=== PATIENT | female | born 1935 | race Caucasian/White ===

== ENCOUNTER 2017-01-19 06:34 | Emergency (ER) | payer MEDICARE, BC ==
[~2017-01-19] VITALS: Ht 167.6 cm; Wt 55.3 kg
[~2017-01-19 06:34] MED LIST: ALPR0.5T PO; APIX5TAB OR; SOTA80TA20 PO; ZOLP10TA PO; [UNRECOGNIZED DRUG - CODE] PO
[2017-01-19 07:43] VITALS: BP 164/70
[2017-01-19] MEDS ORDERED: HYDROcodone-ACET 10/325MG TAB PO ONE (08:00)
== END 2017-01-19 09:32 | disposition home or self-care (01) ==
LOC: ER 06:34 → EDBD 06:34 → ER 09:32
DX: S40.011A Contusion of right shoulder, initial encounter (principal); S20.211A Contusion of right front wall of thorax, initial encounter; M19.90 Unspecified osteoarthritis, unspecified site; Z88.2 Allergy status to sulfonamides; W01.0XXA Fall on same level from slipping, tripping and stumbling without subsequent striking against object, initial encounter; Y93.89 Activity, other specified; Y99.8 Other external cause status; Y92.002 Bathroom of unspecified non-institutional (private) residence as the place of occurrence of the external cause
CPT/HCPCS: 71101; 73030; 73502; 73630

== ENCOUNTER 2018-06-28 08:51 | Emergency (ER) | payer MEDICARE, OTHER ==
[~2018-06-28] VITALS: Ht 162.6 cm; Wt 50.3 kg
[2018-06-28 10:10] LABS: Basophils # (auto) 0.1 uL; Basophils % (auto) 1.1 % (0.0-2.0); Eosinophils # (auto) 0.2 uL; Eosinophils % (auto) 3.8 % (0.0-7.0); Hematocrit 33.2 % (36.0-46.0); Hemoglobin 10.9 g/dL (12.2-16.2); Lymphocytes # (auto) 0.9 uL; Lymphocytes % (auto) 17.5 % (10.0-50.0); Mean Corpuscular Hemoglobin 29.7 pg (28.0-32.0); Mean Corpuscular Volume 90.1 fL (80.0-100.0); Monocytes # (auto) 0.3 uL; Neutrophils # (auto) 3.4 uL; Neutrophils % (auto) 70.6 % (37.0-80.0); Platelet Count (auto) 280 10^3/uL (140-450); Red Blood Cells 3.68 10^6/uL (4.0-5.20); Red Cell Distribution Width 14.8 % (11.8-14.3); White Blood Cell 4.9 10^3/uL (4.4-10.8)
[2018-06-28 10:14] LABS: Urine WBC None Seen /hpf (0 - 5)
[2018-06-28 10:29] LABS: Albumin 3.6 g/dL (3.4-5.0); Anion Gap 11 (5-15); Blood Urea Nitrogen 16 mg/dL (7-18); Carbon Dioxide 24 mmol/L (21-32); Chloride 102 mmol/L (98-107); Glucose 114 mg/dL (74-106); Potassium 3.8 mmol/L (3.5-5.1); Sodium 137 mmol/L (136-145)
[2018-06-28 10:35] LABS: Alanine Aminotransferase 20 U/L (13-56); Alkaline Phosphatase 156 U/L (45-117); Aspartate Aminotransferase 40 U/L (15-37); BUN/Creatinine Ratio 22.2; Bilirubin, Total 0.4 mg/dL (0.2-1.0); GFR African American 99 mL/min; GFR Non-African American 82 mL/min; Total Protein 6.7 g/dL (6.4-8.2)
[2018-06-28 10:53] LABS: Urine Bacteria NONE SEEN /hpf (None Seen); Urine Blood TRACE /uL (Negative); Urine Specific Gravity 1.006 (1.001-1.035)
[2018-06-28 12:57] VITALS: BP 146/60
== END 2018-06-28 13:05 | disposition home or self-care (01) ==
LOC: EDBD 08:51 → ER 08:51
DX: I11.0 Hypertensive heart disease with heart failure (principal); I50.9 Heart failure, unspecified; F41.8 Other specified anxiety disorders; I48.91 Unspecified atrial fibrillation; Z79.899 Other long term (current) drug therapy; Z88.2 Allergy status to sulfonamides; Z88.8 Allergy status to other drugs, medicaments and biological substances
CPT/HCPCS: 36415; 80053; 81001; 84484; 85025; 93005; 94761

== ENCOUNTER 2018-11-14 16:27 | Emergency (ER) | payer MEDICARE, OTHER ==
[~2018-11-14] VITALS: Ht 160 cm; Wt 47.6 kg
[2018-11-14] MEDS ORDERED: ONDANSETRON HCL 4 MG/2 ML VIAL IV ONE (17:30)
[2018-11-14] MEDS ORDERED: MORPHINE SULF INJ 2 MG/ML SYRINGE 1ML IV ONE (17:30)
[2018-11-14] MEDS ORDERED: ONDANSETRON HCL 4 MG/2 ML VIAL IM ONE (17:45)
[2018-11-14] MEDS ORDERED: MORPHINE SULF INJ 2 MG/ML SYRINGE 1ML IM ONE (17:45)
[2018-11-14 18:08] LABS: Albumin 3.4 g/dL (3.4-5.0); Calcium 8.2 mg/dL (8.5-10.1); Potassium 3.6 mmol/L (3.5-5.1)
[2018-11-14 18:10] LABS: Basophils # (auto) 0.1 uL; Eosinophils # (auto) 0.1 uL; Lymphocytes # (auto) 1.3 uL; Monocytes # (auto) 0.6 uL; Monocytes % (auto) 7.9 % (0.0-12.0); Neutrophils # (auto) 5.3 uL; White Blood Cell 7.4 10^3/uL (4.4-10.8)
[2018-11-14 18:11] LABS: Basophils % (auto) 0.8 % (0.0-2.0); Eosinophils % (auto) 1.8 % (0.0-7.0); Hematocrit 32.6 % (36.0-46.0); Hemoglobin 10.4 g/dL (12.2-16.2); Mean Corpuscular Hemoglobin 27.6 pg (28.0-32.0); Mean Corpuscular Volume 86.2 fL (80.0-100.0); Neutrophils % (auto) 71.5 % (37.0-80.0); Nucleated Red Blood Cells % 0.1 %; Platelet Count (auto) 340 10^3/uL (140-450); Red Blood Cells 3.78 10^6/uL (4.0-5.20); Red Cell Distribution Width 15.8 % (11.8-14.3)
[2018-11-14 18:12] LABS: BUN/Creatinine Ratio 16.9; Bilirubin, Total 0.2 mg/dL (0.2-1.0); Total Protein 6.2 g/dL (6.4-8.2)
[2018-11-14 18:40] LABS: Urine Bacteria FEW /hpf (None Seen); Urine Blood Negative /uL (Negative); Urine Specific Gravity 1.006 (1.001-1.035); Urine WBC <1 /hpf (0 - 5)
[2018-11-14 21:12] VITALS: BP 171/71
[2018-11-14] MEDS ORDERED: HYDROcodone-ACET 5/325MG TAB PO ONE (22:45)
== END 2018-11-14 23:27 | disposition home or self-care (01) ==
LOC: EDBD 16:27 → ER 16:29
DX: S80.11XA Contusion of right lower leg, initial encounter (principal); D50.9 Iron deficiency anemia, unspecified; M19.90 Unspecified osteoarthritis, unspecified site; I11.0 Hypertensive heart disease with heart failure; I50.9 Heart failure, unspecified; Z90.49 Acquired absence of other specified parts of digestive tract; Z90.710 Acquired absence of both cervix and uterus; Z88.2 Allergy status to sulfonamides; W19.XXXA Unspecified fall, initial encounter; Y93.89 Activity, other specified; Y99.8 Other external cause status; Y92.89 Other specified places as the place of occurrence of the external cause
CPT/HCPCS: 36415; 71045; 73590; 80053; 81001; 85025; 93005; 96372; J2405

== ENCOUNTER 2020-01-16 10:31 | Inpatient (IN) | payer MEDICARE ==
[~2020-01-16] VITALS: Ht 165.1 cm; Wt 60.0 kg
[2020-01-16 11:40] LABS: Eosinophils # (auto) 0 10 ^3/uL (0-0.8)
[2020-01-16 11:43] LABS: Basophils # (auto) 0.1 10 ^3/uL (0-0.2); Basophils % (auto) 0.4 % (0.0-2.0); Hematocrit 38.2 % (36.0-46.0); Hemoglobin 11.8 g/dL (12.2-16.2); Lymphocytes # (auto) 0.6 10 ^3/uL (0.4-5.4); Lymphocytes % (auto) 2.9 % (10.0-50.0); Mean Corpuscular Hemoglobin 23.8 pg (28.0-32.0); Mean Corpuscular Hgb Conc. 30.8 g/dL (32.0-36.0); Mean Corpuscular Volume 77.3 fL (80.0-100.0); Monocytes # (auto) 1.3 10 ^3/uL (0-1.3); Monocytes % (auto) 6.3 % (0.0-12.0); Neutrophils # (auto) 18.6 10 ^3/uL (1.6-8.6); Neutrophils % (auto) 90.4 % (37.0-80.0); Platelet Count (auto) 433 10^3/uL (140-450); Red Blood Cells 4.94 10^6/uL (4.0-5.20); Red Cell Distribution Width 16.8 % (11.8-14.3); White Blood Cell 20.6 10^3/uL (4.4-10.8)
[2020-01-16 12:01] LABS: Potassium 3.6 mmol/L (3.5-5.1)
[2020-01-16] MEDS: MORPHINE SULF INJ 2 MG/ML SYRINGE 1ML IV PRN ×4 (12:08→21:35)
[2020-01-16 12:10] LABS: Albumin 3.5 g/dL (3.4-5.0); BUN/Creatinine Ratio 23.5; Bilirubin, Total 0.4 mg/dL (0.2-1.0); Total Protein 7.7 g/dL (6.4-8.2)
[2020-01-16 13:25] LABS: Urine Bacteria NONE SEEN /hpf (None Seen); Urine Blood 2+ /uL (Negative); Urine Hyaline Cast FEW /lpf (0 - 2); Urine Mucus FEW (None Seen); Urine Specific Gravity 1.016 (1.001-1.035); Urine WBC 1 /hpf (0 - 5)
[2020-01-16] MEDS ORDERED: NITROGLYCERIN 0.4 MG SL TAB SL PRN (14:00)
[2020-01-16] MEDS: SODIUM CHLORIDE 0.9% 1,000 ML IV SCH (14:29)
[2020-01-16] MEDS ORDERED: LABETALOL HCL 5 MG/ML 4ML SYRINGE IV PRN (15:00)
[2020-01-16 17:00] VITALS: BP 153/82
--- NOTE | 2020-01-16 17:30 | NUR ---
Telemetry admit from ER MANUELAAIDA PRADO admitted to Telemetry unit, no report received. Patient oriented to JEREMY VILA RN primary RN, unit, room, bed, and unit policies regarding patient care. Patient now on continuous telemetry monitoring, tele box # 88 and telemetry reading on arrival to unit is sinus tachycardic 110. Patient is on room air, respirations even and unlabored. Patient complains of pain to left hip 8/10. Patient repositioned for comfort. Reviewed plan of care with patient, patient verbalized understanding. Bed in low and locked position, call light within reach. Will continue to monitor Q1 hour and PRN. Bed alarm of for safety.
--- NOTE | 2020-01-16 17:45 | NUR ---
computed tomography technologist at bedside
[2020-01-16] MEDS: PIPERACILLIN-TAZOB 3.375GM 100 ML IV SCH (18:01)
[2020-01-16] MEDS: SUCRALFATE 1 GM/10 ML ORAL SUSP GT SCH (18:01)
--- NOTE | 2020-01-16 18:41 | NUR ---
PATIENT STATES SHE HAD A PNEUMONIA VACCINE 2 YEARS AGO AND DOES NOT WANT A FLU SHOT. PATIENT EDUCATED AND STILL REFUSES.
--- NOTE | 2020-01-16 18:55 | NUR ---
Wound photos taken
[2020-01-16 19:19] LABS: INR 1.03 (0.9-1.15)
--- NOTE | 2020-01-16 19:30 | NUR ---
Opening Shift Note Assumed care of patient, awake and alert. No S/S of distress/SOB. Pain management options discussed with patient. Instructed on POC and to call for assist PRN, will continue to monitor for changes Q1hr and PRN.
--- NOTE | 2020-01-16 19:36 | NUR ---
Closing Note Report given to overnight caregiver RN. No signs or symptoms of distress noted at this time. Bed alarm on for safety.
[2020-01-16 20:00] VITALS: BP 147/75
[2020-01-16] MEDS: METOPROLOL TARTRATE 25 MG TAB PO SCH (21:35)
--- NOTE | 2020-01-16 21:55 | NUR ---
Spoke with Dr. Gross concerning the patient's wishes to not have the procedure tomorrow. Dr. Gross said that he will be here in the morning to speak with the patient.
[2020-01-17] MEDS: PIPERACILLIN-TAZOB 3.375GM 100 ML IV SCH ×3 (00:19→11:50)
[2020-01-17] MEDS: SODIUM CHLORIDE 0.9% 1,000 ML IV SCH ×3 (00:19→20:00)
[2020-01-17] MEDS: ONDANSETRON HCL 4 MG/2 ML VIAL IV PRN (00:20)
[2020-01-17] MEDS: TEMAZEPAM 15 MG CAP PO PRN (03:37)
[2020-01-17] MEDS: SUCRALFATE 1 GM/10 ML ORAL SUSP GT SCH ×3 (06:28→17:57)
[2020-01-17 06:33] LABS: Basophils # (auto) 0 10 ^3/uL (0-0.2); Eosinophils # (auto) 0 10 ^3/uL (0-0.8); Lymphocytes % (auto) 7.3 % (10.0-50.0); Monocytes # (auto) 1.1 10 ^3/uL (0-1.3); Monocytes % (auto) 8.1 % (0.0-12.0); Neutrophils # (auto) 11.5 10 ^3/uL (1.6-8.6); Neutrophils % (auto) 84.3 % (37.0-80.0); White Blood Cell 13.6 10^3/uL (4.4-10.8)
[2020-01-17 06:36] LABS: Basophils % (auto) 0.1 % (0.0-2.0); Eosinophils % (auto) 0.2 % (0.0-7.0); Hematocrit 32.7 % (36.0-46.0); Mean Corpuscular Hemoglobin 23.8 pg (28.0-32.0); Mean Corpuscular Hgb Conc. 30.6 g/dL (32.0-36.0); Mean Corpuscular Volume 77.8 fL (80.0-100.0); Platelet Count (auto) 319 10^3/uL (140-450); Red Cell Distribution Width 16.8 % (11.8-14.3)
[2020-01-17 06:44] LABS: Potassium 3.9 mmol/L (3.5-5.1)
[2020-01-17 07:21] LABS: Albumin 3.1 g/dL (3.4-5.0); BUN/Creatinine Ratio 26.9; Bilirubin, Total 0.4 mg/dL (0.2-1.0); Calcium 8.6 mg/dL (8.5-10.1); Total Protein 6.7 g/dL (6.4-8.2)
--- NOTE | 2020-01-17 07:45 | NUR ---
Opening Shift Note Assumed care of patient, awake and alert x3. No S/S of distress/SOB. Patient reports abdominal pain of 6/10, will medicate per MD orders. Instructed on POC and to call for assistance PRN. Bed locked in lowest position, side rails up x2, call light within reach, bed alarm on, safety precautions in place. Will continue to monitor for changes Q1hr and PRN.
[2020-01-17] MEDS: HYDROcodone-ACET 5/325MG TAB PO PRN (08:03)
[2020-01-17 09:00] VITALS: BP 157/68
[2020-01-17] MEDS ORDERED: MUPIROCIN 2% OINT 15gm or 22gm EACHNOSTRI SCH (10:00)
[2020-01-17 10:24] LABS: % Iron Saturation 11.7 % (15-50)
[2020-01-17] MEDS: PANTOPRAZOLE 40 MG/10 ML VIAL INJ IV SCH (10:31)
[2020-01-17] MEDS: METOPROLOL TARTRATE 25 MG TAB PO SCH ×2 (10:31→22:03)
[2020-01-17] MEDS: MORPHINE SULF INJ 2 MG/ML SYRINGE 1ML IV PRN ×2 (10:31→21:06)
[2020-01-17] MEDS ORDERED: ALPRAZolam 0.5 MG TAB PO PRN (11:45)
[2020-01-17] MEDS ORDERED: POLYETHYLENE GLYCOL 17 GM PWDR PO PRN (11:45)
[2020-01-17] MEDS ORDERED: IRON SUCROSE COMPLEX 200 MG in SODIUM CHL 0.9% 100 ML IV SCH (12:00)
[2020-01-17] MEDS ORDERED: TETRACAINE 1% INJ 2 ML VIAL IJ ONE (12:45)
[2020-01-17] MEDS ORDERED: BUPIVACAINE 0.25% INJ 50ML VIAL ONE (12:45)
[2020-01-17] MEDS ORDERED: KETOROLAC TROMETH 30 MG/ML 1ML VIAL ONE (12:47)
[2020-01-17] MEDS ORDERED: MORPHINE SULF(PF) 0.5MG/ML 10ML VIAL ONE ×2 (12:47→13:23)
[2020-01-17] MEDS ORDERED: TRANEXAMIC ACID 10 ML ONE ×2 (12:50→12:58)
[2020-01-17] MEDS ORDERED: VANCOMYCIN HCL 1000 MG VL ONE ×2 (12:54→13:45)
[2020-01-17 13:00] VITALS: BP 139/65
[2020-01-17] MEDS: SODIUM FERR GLUC 62.5MG/5ML 125 MG in SODIUM CHL 0.9% 100 ML IV SCH (13:00)
[2020-01-17] MEDS ORDERED: fentaNYL CITRATE 100 MCG/2 ML VL ONE (13:23)
[2020-01-17] MEDS ORDERED: GLYCOPYRROLATE 0.2 MG/ML 1ML VIAL ONE (13:24)
[2020-01-17] MEDS ORDERED: ePHEDrine SULFATE 50 MG/ML AMP ONE (13:24)
[2020-01-17] MEDS ORDERED: ONDANSETRON HCL 4 MG/2 ML VIAL ONE (13:24)
[2020-01-17] MEDS ORDERED: PROPOFOL 10 MG/ML 20 ML IV ONE (13:24)
[2020-01-17] MEDS ORDERED: PHENYLEPHRINE HCL 10 MG/ML VL ONE (13:24)
[2020-01-17] MEDS ORDERED: MIDAZOLAM HCL 1MG/1ML-2 ML VIAL ONE (13:30)
[2020-01-17] MEDS ORDERED: ETOMIDATE (2MG/ML) 20ML VIAL IV ONE (13:39)
[2020-01-17] MEDS ORDERED: DexAMETHasone SOD PHOS 10MG/1ML VIAL INJ ONE (13:39)
[2020-01-17] MEDS ORDERED: ROCURONIUM 10MG/ML 10ML VIAL IV ONE (13:40)
--- NOTE | 2020-01-17 13:47 | NUR ---
PATIENT TAKEN TO OR FOR PROCEDURE NO DISTRESS NOTED.
[2020-01-17] MEDS ORDERED: FAMOTIDINE (10MG/ML) 2ML VL IV ONE (13:52)
[2020-01-17] MEDS ORDERED: HYDROmorphone HCL 2 MG/ML VL ONE (14:23)
[2020-01-17] MEDS ORDERED: GENTAMICIN SULF 80 MG/2 ML VIAL ONE ×2 (14:39→14:50)
--- NOTE | 2020-01-17 15:18 | NUR ---
SPOKE WITH MICROBIOLOGY, POSITIVE MRSA IN THE NARES DR LEON PAGED.
--- NOTE | 2020-01-17 15:50 | NUR ---
assessment re: ss consult for living alone Patient is a 84 year old female who is alert and oriented. Patients cognitive abilities are intact. Patients emotional state is stable. Prior to admission patient lived home alone and functioned independently. Patient informed me she is able to care for her own ADLs. Per patient she was feeling dizzy and weak and fell and passed out fracturing her left hip. Patient informed me she feels like she may have had a stroke due to her face drooping. I have informed Dr Aldana. Patient informed me she has hired a lady to come in twice a week for cleaning shopping. Patients PCP is Dr Jansen. I informed patint her post discharge plan will be assessed after surgery and after PT eval. I did inform patient she should consider SNF since she lives alone for rehab. Patient agreed to SNF. I will continue to monitor and follow up as appropriate for any post discharge needs. I informed patient she has a right to speak to a psych social worker regarding all care. I informed patient she has a right to participate in any and all discharge planning. Patient has a POA and advanced directive. Patient verbalized understanding and agreed to discharge plan. Addendum: 01/17/20 at 1556 by Supriya KHALIL Amended: Links added. Addendum: 01/21/20 at 1400 by PAT BARKER SS Patient status is place on will call status for transfer to [facility], once patient is cleared for discharge.
[2020-01-17] MEDS ORDERED: ceFAZolin 1GM/50ML 50 ML IV SCH (16:00)
[2020-01-17] MEDS ORDERED: ONDANSETRON HCL 4 MG/2 ML VIAL IV PRN (16:30)
--- NOTE | 2020-01-17 17:43 | NUR ---
PATIENT BACK FROM PACU REPORT RECEIVED FROM TUMBLING AND ROLLING SUPERVISOR. NO S/S OF DISTRESS OR SOB. PATIENT DENIES PAIN AT THIS TIME. LEFT HIP INCISION SITE CLEAN, DRY AND INTACT. BED IS LOCKED IN LOWEST POSITION, SIDE RAILS UP X2, CALL LIGHT WITHIN REACH, BED ALARM ON. SCDS APPLIED TO BILATERAL LOWER EXTREMITIES. PATIENT INSTRUCTED TO CALL FOR ASSISTANCE NEEDED. WILL CONTINUE TO MONITOR FOR CHANGES.
[2020-01-17] MEDS: LACTATED RINGER'S 1,000 ML IV SCH ×2 (18:00→23:35)
--- NOTE | 2020-01-17 18:00 | NUR ---
Sumner catheter dc'd Order to discontinue sumner catheter. Sumner dc'd with clean technique following deflation of balloon. Patient tolerated well with no complaints of pain. Continue care.
--- NOTE | 2020-01-17 18:49 | NUR ---
LACTATED RINGERS MEDICATION HELD PATIENT SITTING UP EATING DINNER AT THIS TIME, TOLERATING WELL. HELD PER PROTOCOL.
--- NOTE | 2020-01-17 19:00 | NUR ---
Opening Shift Note Assumed care of patient, awake and alert. No S/S of distress/SOB or pain. Instructed on POC and to call for assist PRN, will continue to monitor for changes Q1hr and PRN. Patient in the lowest possible position with call light within reach.
[2020-01-17 20:00] VITALS: BP 124/72
[2020-01-17 21:00] VITALS: BP 124/72
--- NOTE | 2020-01-17 21:00 | NUR ---
Dr. Arredondo at bedside. Discussed with MD patients narratives about what she is seeing in the room. Currently seeing her medication on the floor and children running around outside. MD aware and assessing the patient. New orders to be put in.
[2020-01-17] MEDS: SODIUM CHLOR 0.9% PF (SALINE LOCK) 10ML VIAL/SYR IV SCH (22:03)
[2020-01-17] MEDS: VANCOMYCIN 1GM/250ML 250 ML IV SCH (22:03)
[2020-01-17] MEDS: MUPIROCIN 2% OINT 15gm or 22gm EACHNOSTRI SCH (22:04)
[2020-01-17 22:28] LABS: Folate (Folic Acid) 4.25 ng/mL (5.38-24)
[2020-01-18] MEDS: ceFAZolin 1GM/50ML 50 ML IV SCH ×2 (00:17→06:07)
--- NOTE | 2020-01-18 02:00 | NUR ---
Patient due to void, placed on bedpan. Patient stated that she did not feel like going but agreed to be put on seaman. Patient stated she could not pee. Bladder scan done. Highest reading was 155ml and lowest is 44ml. Patient is not distended and does not complain of discomfort at this time. Will continue to monitor patient and reevaluate. MD will be notified if patient has not gone.
[2020-01-18 05:00] VITALS: BP 127/54
[2020-01-18] MEDS: SODIUM CHLORIDE 0.9% 1,000 ML IV SCH (05:55)
[2020-01-18] MEDS: SODIUM CHLOR 0.9% PF (SALINE LOCK) 10ML VIAL/SYR IV SCH ×3 (05:55→21:22)
[2020-01-18] MEDS: SUCRALFATE 1 GM/10 ML ORAL SUSP GT SCH ×3 (06:07→17:17)
--- NOTE | 2020-01-18 06:50 | NUR ---
Patient not voiding, no higher urine in bladder scan than 155ml. paged.
--- NOTE | 2020-01-18 07:04 | NUR ---
MD called back, order 1/2 NS, will carry out orders.
--- NOTE | 2020-01-18 07:30 | NUR ---
Opening Shift Note Assumed care of patient, awake and alert with periods of confusion. Patient needs frequent reorienting. Instructed on POC and to call for assistance PRN. Bed locked in lowest position, side rails up x2, call light within reach, bed alarm on, safety precautions in place. Will continue to monitor for changes Q1hr and PRN.
[2020-01-18 09:00] VITALS: BP 146/82
[2020-01-18 09:04] LABS: Hemoglobin 8.4 g/dL (12.2-16.2)
[2020-01-18 09:05] LABS: Hematocrit 26.7 % (36.0-46.0)
[2020-01-18 09:27] LABS: Albumin 3.1 g/dL (3.4-5.0); Calcium 8.4 mg/dL (8.5-10.1); Potassium 3.8 mmol/L (3.5-5.1)
[2020-01-18 09:33] LABS: BUN/Creatinine Ratio 23.6; Bilirubin, Total 0.2 mg/dL (0.2-1.0); Total Protein 6.4 g/dL (6.4-8.2)
[2020-01-18] MEDS: FOLIC ACID 1 MG in D5W 5% 50 ML INJ SCH (10:00)
[2020-01-18] MEDS: MUPIROCIN 2% OINT 15gm or 22gm EACHNOSTRI SCH ×2 (10:00→21:22)
[2020-01-18] MEDS: PANTOPRAZOLE 40 MG/10 ML VIAL INJ IV SCH (10:00)
[2020-01-18] MEDS: ENOXAPARIN SOD 40 MG/0.4 ML SYRINGE SC SCH (10:00)
[2020-01-18] MEDS: VANCOMYCIN 1GM/250ML 250 ML IV SCH (10:00)
[2020-01-18] MEDS: METOPROLOL TARTRATE 25 MG TAB PO SCH ×2 (10:00→21:22)
--- NOTE | 2020-01-18 10:00 | NUR ---
Patient refused scheduled meds Patient refused scheduled meds, stated "This is going to kill me I don't want any of this". Educated patient on what medications were to be given and what they would treat. Patient verbalized understanding but still refused stating "This is going to kill me". Patient stated "This is cocaine you are trying to give me this is dope, I don't want any of it". Educated patient that medications are not cocaine and what they are for. Frequently reoriented patient but patient continued to refuse any medications scheduled to be given.
--- NOTE | 2020-01-18 10:15 | NUR ---
Patient pulled out IV Patient pulled out IV on right forearm 22G. Patient stated "This is taking all my blood, I don't want this". Frequently reoriented patient as she experiences periods of confusion. Educated patient on the importance of having IV access to provide her with needed medications. Patient continued to refuse IV as she states "It's going to kill me, it's taking all of my blood". Addendum: 01/18/20 at 1452 by Liana Huertas RN MD LEON MADE AWARE OF PATIENT PULLING OUT IV AND REFUSING REINSERTION. WILL CONTINUE TO EDUCATE AND REATTEMPT AT A LATER TIME.
--- NOTE | 2020-01-18 11:15 | NUR ---
WOUND CARE NOTE: WOUND CONSULT ORDERED FOR PATIENT FOR WOUNDS TO POSTERIOR HEAD, LEFT WRIST. PATIENT WAS ADMITTED TO [facility], WITH DIAGNOSIS OF LEFT FEMORAL NECK FRACTURE. PATIENT IS S/P HIP SURGERY. CURRENT MARY SCORE IS 15. PATIENT CURRENTLY U P IN CHAIR. WOUND PHOTOS OF POSTERIOR HEAD AND LEFT WRIST WOUND TAKEN UPON ADMIT BY BEDSIDE NURSE FOR REFERENCE. PATIENT'S ABRASIONS ARE NOW SCABBED CLOSED TO POSTERIOR HEAD AND LEFT WRIST. LEFT OPEN TO AIR. LEFT HIP INCISION HAS POST SURGICAL DRESSING APPLIED, AND IS CDI. NO NEED FOR ANY DRESSINGS FOR CLOSED ABRASIONS. SKIN/WOUND CARE PLAN IMPLEMENTED. RECOMMEND: SKIN/WOUND CARE PLAN; NO WOUND CARE MONITORING NEEDED. Addendum: 01/18/20 at 1658 by Shweta Ocampo RN Amended: Links added.
[2020-01-18] MEDS ORDERED: FOLIC ACID 1 MG TAB PO ONE (11:30)
[2020-01-18] MEDS: PIPERACILLIN-TAZOB 3.375GM 100 ML IV SCH ×2 (12:00→17:11)
[2020-01-18] MEDS: SODIUM FERR GLUC 62.5MG/5ML 125 MG in SODIUM CHL 0.9% 100 ML IV SCH (12:00)
[2020-01-18] MEDS: LACTATED RINGER'S 1,000 ML IV SCH ×2 (12:00→21:22)
--- NOTE | 2020-01-18 12:10 | NUR ---
PATIENT VOIDED PATIENT ASSISTED TO BEDSIDE COMMODE TO VOID. FULL LINEN CHANGE COMPLETED AND PATIENT WAS ASSISTED BACK TO BED AND ADJUSTED FOR COMFORT.
[2020-01-18] MEDS: HYDROcodone-ACET 5/325MG TAB PO PRN ×2 (12:59→18:54)
[2020-01-18 13:00] VITALS: BP 126/61
--- NOTE | 2020-01-18 13:20 | NUR ---
PROVIDED FAMILY WITH AN UPDATE SPOKE WITH DAUGHTER. Addendum: 01/18/20 at 1320 by Shannon Morris RN AFTER PASSWORD WAS VERIFIED.
--- NOTE | 2020-01-18 15:36 | NUR ---
EEG-ELECTROENCEPHALOGRAM COMPLETED AT BEDSIDE AT 1409. JERRI MCGEE
[2020-01-18 17:00] VITALS: BP 131/66
--- NOTE | 2020-01-18 17:12 | NUR ---
PATIENT CONTINUES TO REFUSE IV. WILL ENDORSE TO ENGINE BUILDER RN.
--- NOTE | 2020-01-18 18:15 | NUR ---
ATTEMPT AT IV ACCESS UNSUCCESSFUL 2 UNSUCCESSFUL IV ATTEMPTS TO THE RIGHT FOREARM, BOTH ATTEMPTS THE VEIN BLEW WHILE ADVANCING CATHETER. PATIENT STATES "I AM DONE FOR NOW, MAYBE SOMEONE CAN TRY AGAIN LATER BUT NO MORE FOR NOW".
--- NOTE | 2020-01-18 19:00 | NUR ---
Opening Shift Note Assumed care of patient, awake and alert. No S/S of distress/SOB, patient does complain of back pain due to getting up with PT today. Will monitor patient and give medications for patient per protocol. Instructed on POC and to call for assist PRN, will continue to monitor for changes Q1hr and PRN. Patient in the lowest possible position with call light within reach.
[2020-01-18 20:00] VITALS: BP 138/54
[2020-01-18] MEDS: HALOPERIDOL 1 MG TAB PO PRN (21:23)
--- NOTE | 2020-01-18 21:30 | NUR ---
Patient denies Bactroban or anything in her nose at this time. Will continue to monitor.
[2020-01-18] MEDS: TEMAZEPAM 15 MG CAP PO PRN (21:51)
[2020-01-18 22:00] VITALS: BP 138/54
--- NOTE | 2020-01-18 22:00 | NUR ---
Patient states that she get sleeping pills every night and requested a sleeping pill. Will administer per protocol. Will continue to monitor patient.
--- NOTE | 2020-01-18 22:40 | NUR ---
Patient took out IV earlier today, attempts were not successful. Patient denies any more poking for another IV at this time. Patient educated on the need for an IV, patient aware and states that "they all blow any ways". Will continue to monitor. MD made aware by dayshisravan RN. All IV medications not to be given at this time.
[2020-01-19] MEDS: HYDROcodone-ACET 5/325MG TAB PO PRN ×2 (02:41→09:40)
--- NOTE | 2020-01-19 03:05 | NUR ---
Patient bed straightened out and new chux put under patient. Patient C/O feeling pain in her left side and wanted to be fixed in her bed, pain medication given per protocol and patient turned. Patient also C/O feeling SOB, 2L NC given to patient to help with her breathing. O2 saturation reading 95 at this time. Will continue to monitor patient.
[2020-01-19] MEDS: ACETAMINOPHEN 500 MG TAB PO PRN (04:52)
[2020-01-19 05:00] VITALS: BP 118/55
[2020-01-19 05:42] LABS: Hemoglobin 7.8 g/dL (12.2-16.2)
[2020-01-19 05:46] LABS: Hematocrit 24.8 % (36.0-46.0)
[2020-01-19] MEDS: SODIUM CHLOR 0.9% PF (SALINE LOCK) 10ML VIAL/SYR IV SCH ×3 (05:54→21:45)
[2020-01-19] MEDS: PIPERACILLIN-TAZOB 3.375GM 100 ML IV SCH ×3 (05:55→12:22)
[2020-01-19] MEDS: SUCRALFATE 1 GM/10 ML ORAL SUSP GT SCH ×3 (06:18→18:15)
--- NOTE | 2020-01-19 07:30 | NUR ---
Opening Shift Note Assumed care of patient, awake and alert. No S/S of distress/SOB or pain. Instructed on POC and to call for assist PRN, will continue to monitor for changes Q1hr and PRN. Fall precautions in place per safety protocol.
[2020-01-19] MEDS: LACTATED RINGER'S 1,000 ML IV SCH ×2 (08:00→18:00)
[2020-01-19 09:00] VITALS: BP 145/75
[2020-01-19] MEDS: MUPIROCIN 2% OINT 15gm or 22gm EACHNOSTRI SCH ×2 (09:44→21:45)
[2020-01-19] MEDS: PANTOPRAZOLE 40 MG/10 ML VIAL INJ IV SCH (09:44)
[2020-01-19] MEDS: METOPROLOL TARTRATE 25 MG TAB PO SCH ×2 (09:44→21:45)
[2020-01-19] MEDS: FOLIC ACID 1 MG TAB PO SCH (09:44)
[2020-01-19] MEDS: ENOXAPARIN SOD 40 MG/0.4 ML SYRINGE SC SCH (09:45)
--- NOTE | 2020-01-19 09:45 | NUR ---
IV insertion IV access obtained, via clean sterile technique by inserting 22 gauge catheter at L FA after 2 attempts. IV secured properly. No trauma to site. Patient tolerated well.
[2020-01-19] MEDS: FOLIC ACID 1 MG in D5W 5% 50 ML INJ SCH (10:00)
[2020-01-19] MEDS: MORPHINE SULF INJ 2 MG/ML SYRINGE 1ML IV PRN ×3 (12:22→20:40)
[2020-01-19 13:00] VITALS: BP 154/95
[2020-01-19] MEDS ORDERED: EPOETIN ALFA 10,000 UNIT/1 ML VIAL IV ONE (13:00)
[2020-01-19] MEDS: SODIUM FERR GLUC 62.5MG/5ML 125 MG in SODIUM CHL 0.9% 100 ML IV SCH (13:00)
[2020-01-19] MEDS: ONDANSETRON HCL 4 MG/2 ML VIAL IV PRN (13:00)
[2020-01-19] MEDS ORDERED: cefTRIAXone 1GM/50ML D5W 50 ML IV ONE (13:45)
--- NOTE | 2020-01-19 13:45 | NUR ---
Epogen Per Pharmacy Epogen could not be approved for this patient Per MD Gonzales. Will cont to monitor patient.
--- NOTE | 2020-01-19 14:20 | NUR ---
Nutrition Assessment Note please see attached link for complete assessment Est energy needs BW 56 [id number] kcal (25-30 kcal/kg BW) Est protein needs: 56-67 g (1.0-1.2 g/kg BW) Will reassess prn. Addendum: 01/19/20 at [address] Amended: Links added.
[2020-01-19 16:22] VITALS: BP 152/68
--- NOTE | 2020-01-19 19:00 | NUR ---
Opening Shift Note Assumed care of patient, awake and alert. No S/S of distress/SOB or pain. Instructed on POC and to call for assist PRN, will continue to monitor for changes Q1hr and PRN. patient in the lowest possible position, Will continue to monitor.
[2020-01-19 20:00] VITALS: BP 159/74
--- NOTE | 2020-01-19 21:00 | NUR ---
Patient stated that her butt was hurting her and that she thinks she has a sore. Patient turned and checked, no sore noted, redness noted on the sacrum. Optifoam applied, patient encouraged to turned side to side but patient complains of pain when being turned. Patient currently lying supine.
[2020-01-19] MEDS: HALOPERIDOL 1 MG TAB PO PRN (21:46)
[2020-01-19] MEDS: TEMAZEPAM 15 MG CAP PO PRN (21:46)
[2020-01-19 22:00] VITALS: BP 159/74
[2020-01-20] MEDS: ONDANSETRON HCL 4 MG/2 ML VIAL IV PRN (03:39)
[2020-01-20] MEDS: LACTATED RINGER'S 1,000 ML IV SCH ×2 (04:00→14:00)
[2020-01-20 05:00] VITALS: BP 150/72
[2020-01-20] MEDS: SODIUM CHLOR 0.9% PF (SALINE LOCK) 10ML VIAL/SYR IV SCH ×3 (05:20→21:38)
[2020-01-20] MEDS: SUCRALFATE 1 GM/10 ML ORAL SUSP GT SCH ×3 (06:13→17:05)
[2020-01-20] MEDS: MORPHINE SULF INJ 2 MG/ML SYRINGE 1ML IV PRN ×4 (06:13→20:22)
[2020-01-20 06:46] LABS: Hematocrit 24.2 % (36.0-46.0)
[2020-01-20 06:50] LABS: Hemoglobin 7.7 g/dL (12.2-16.2)
[2020-01-20 09:00] VITALS: BP 149/73
[2020-01-20] MEDS: cefTRIAXone 1GM/50ML D5W 50 ML IV SCH (09:20)
[2020-01-20] MEDS: ENOXAPARIN SOD 40 MG/0.4 ML SYRINGE SC SCH (10:58)
[2020-01-20] MEDS: PANTOPRAZOLE 40 MG/10 ML VIAL INJ IV SCH (10:59)
[2020-01-20] MEDS: FOLIC ACID 1 MG TAB PO SCH (10:59)
[2020-01-20] MEDS: METOPROLOL TARTRATE 25 MG TAB PO SCH ×2 (11:00→21:38)
[2020-01-20] MEDS: MUPIROCIN 2% OINT 15gm or 22gm EACHNOSTRI SCH ×2 (12:08→21:38)
[2020-01-20] MEDS: SODIUM FERR GLUC 62.5MG/5ML 125 MG in SODIUM CHL 0.9% 100 ML IV SCH (12:20)
[2020-01-20 13:00] VITALS: BP 156/81
[2020-01-20 17:00] VITALS: BP 160/68
[2020-01-20] MEDS: HYDROcodone-ACET 5/325MG TAB PO PRN (17:10)
--- NOTE | 2020-01-20 19:35 | NUR ---
Opening Shift Note Assumed care of patient. Awake, alert and oriented x4. No S/S of distress or SOB. Pt reporting pain 11/10. Will medicate as ordered. Instructed on POC and to call for assist PRN. Dressing to left hip is c/d/i. Bed locked, in lowest position, call light within reach, side rails up x2, fall precautions in place. Will continue to monitor for changes Q1hr and PRN.
[2020-01-20] MEDS: HALOPERIDOL 1 MG TAB PO PRN (21:48)
[2020-01-20 22:00] VITALS: BP 156/80
[2020-01-20] MEDS: TEMAZEPAM 15 MG CAP PO PRN (23:10)
[2020-01-21] MEDS: HYDROcodone-ACET 5/325MG TAB PO PRN ×3 (00:52→15:49)
[2020-01-21 05:00] VITALS: BP 140/71
[2020-01-21 05:36] LABS: Basophils # (auto) 0.1 10 ^3/uL (0-0.2); Mean Corpuscular Hemoglobin 24.8 pg (28.0-32.0); Mean Corpuscular Hgb Conc. 31.3 g/dL (32.0-36.0); Monocytes # (auto) 0.8 10 ^3/uL (0-1.3); Neutrophils # (auto) 4.4 10 ^3/uL (1.6-8.6); Nucleated Red Blood Cells % 0.1 %; Platelet Count (auto) 300 10^3/uL (140-450); White Blood Cell 6.8 10^3/uL (4.4-10.8)
[2020-01-21 05:38] LABS: Basophils % (auto) 0.8 % (0.0-2.0); Eosinophils # (auto) 0.5 10 ^3/uL (0-0.8); Eosinophils % (auto) 7.8 % (0.0-7.0); Hematocrit 23.9 % (36.0-46.0); Hemoglobin 7.5 g/dL (12.2-16.2); Mean Corpuscular Volume 79.2 fL (80.0-100.0); Monocytes % (auto) 11.9 % (0.0-12.0); Neutrophils % (auto) 65.5 % (37.0-80.0); Red Blood Cells 3.02 10^6/uL (4.0-5.20); Red Cell Distribution Width 16.9 % (11.8-14.3)
[2020-01-21 05:54] LABS: Calcium 8.4 mg/dL (8.5-10.1); Potassium 3.1 mmol/L (3.5-5.1)
[2020-01-21 05:58] LABS: BUN/Creatinine Ratio 10.9
[2020-01-21] MEDS: SODIUM CHLOR 0.9% PF (SALINE LOCK) 10ML VIAL/SYR IV SCH ×3 (06:28→22:37)
[2020-01-21] MEDS: SUCRALFATE 1 GM/10 ML ORAL SUSP GT SCH ×3 (06:29→17:28)
--- NOTE | 2020-01-21 07:22 | NUR ---
Closing Shift Note No S/S of distress, SOB or pain at this time. Care endorsed to Wellington GUTHRIE
[2020-01-21] MEDS ORDERED: POTASSIUM CHL 20 Meq TABLET PO ONE (07:45)
[2020-01-21 08:00] VITALS: BP 150/69
[2020-01-21] MEDS: cefTRIAXone 1GM/50ML D5W 50 ML IV SCH (08:57)
[2020-01-21 09:00] VITALS: BP 140/71
[2020-01-21] MEDS: MUPIROCIN 2% OINT 15gm or 22gm EACHNOSTRI SCH ×2 (09:49→22:37)
[2020-01-21] MEDS: FOLIC ACID 1 MG TAB PO SCH (09:49)
[2020-01-21] MEDS: PANTOPRAZOLE 40 MG/10 ML VIAL INJ IV SCH (09:50)
[2020-01-21] MEDS: METOPROLOL TARTRATE 25 MG TAB PO SCH ×2 (09:50→22:38)
[2020-01-21] MEDS: ENOXAPARIN SOD 40 MG/0.4 ML SYRINGE SC SCH ×2 (09:50→10:00)
--- NOTE | 2020-01-21 10:00 | NUR ---
LOVENOX HELD AT THIS TIME PATIENT REFUSING MEDICATION AT THIS TIME AND HER HGB 7.5.
[2020-01-21] MEDS: MORPHINE SULF INJ 2 MG/ML SYRINGE 1ML IV PRN ×2 (11:53→21:26)
[2020-01-21 13:00] VITALS: BP 154/81
[2020-01-21] MEDS: SODIUM FERR GLUC 62.5MG/5ML 125 MG in SODIUM CHL 0.9% 100 ML IV SCH (13:06)
[2020-01-21 17:00] VITALS: BP 143/88
--- NOTE | 2020-01-21 17:22 | NUR ---
PHONED DR. EDWARD HOWARD AND ORDERED TO HOLD IT.
--- NOTE | 2020-01-21 19:35 | NUR ---
Opening Shift Note Assumed care of patient. Awake, alert and oriented x4. No S/S of distress, SOB or pain. Instructed on POC and to call for assist PRN. Dressing to left hip is c/d/i. Bed locked, in lowest position, call light within reach, side rails up x2, fall precautions in place. Will continue to monitor for changes Q1hr and PRN.
--- NOTE | 2020-01-21 20:30 | NUR ---
IV insertion IV access obtained, via clean sterile technique by inserting 22 gauge catheter at left forearm after 3 attempts. IV secured properly. No trauma to site. Patient tolerated procedure well.
[2020-01-21 22:00] VITALS: BP 159/78
[2020-01-21] MEDS: PANTOPRAZOLE 40 MG TAB PO SCH (22:38)
[2020-01-21] MEDS: HALOPERIDOL 1 MG TAB PO PRN (23:03)
[2020-01-22] MEDS: TEMAZEPAM 15 MG CAP PO PRN (00:48)
[2020-01-22] MEDS: ACETAMINOPHEN 500 MG TAB PO PRN (01:46)
--- NOTE | 2020-01-22 01:46 | NUR ---
Pt complaining of a headache Medicated pt with Tylenol as ordered. Will continue to monitor
--- NOTE | 2020-01-22 02:05 | NUR ---
Code assist called on patient for non responsiveness. Patient given restoril and haldol about 3 hours ago. Romazicon 0.2 mg given x 2 with no response. Pupils are unequal. Patient taken to CT for head to r/o stroke and possible embolism since patient is status post surgery for hip.
--- NOTE | 2020-01-22 02:05 | NUR ---
Nursing Note Pts HR showing joe on the monitor in the 40's. Assessed pt to find her non responsive to voice or vigorous sternal rub. Pupils unequal, non reactive, fixed, right more dilated than left. VS: BP 177/100, O2 98% on room air, HR 58, RR 18, BS 171. Code assist called. See code assist form
[2020-01-22] MEDS ORDERED: NALOXONE HCL 0.4 MG/ML VIAL ONE (02:10)
[2020-01-22] MEDS ORDERED: FLUMAZENIL 0.1 MG/ML INJ 10ML MDV IV ONE ×3 (02:12→02:18)
--- NOTE | 2020-01-22 02:30 | NUR ---
Pt taken down for head CT and chest CT
--- NOTE | 2020-01-22 03:22 | NUR ---
Pts BP 170/84 Hospitalist paged. New order received for hydralazine 10mg IV Q4hr PRN for SP >160.
[2020-01-22] MEDS ORDERED: hydrALAZINE HCL 20 MG/ML VL IV PRN (03:30)
--- NOTE | 2020-01-22 03:45 | NUR ---
Dr. Arredondo paged STAT to call Albert SHELL regarding CT results
--- NOTE | 2020-01-22 04:00 | NUR ---
Call placed to daughter Afia. Non descriptive message left to call hospitalist
--- NOTE | 2020-01-22 04:15 | NUR ---
Second call to Dr. Arredondo. Called cell phone and unable to leave a message.
--- NOTE | 2020-01-22 04:30 | NUR ---
Called Dr. Arredondo and still no answer and unable to leave a message
[2020-01-22 05:00] VITALS: BP 149/50
--- NOTE | 2020-01-22 05:00 | NUR ---
Left a message for son Rodolfo to call hospitalist
--- NOTE | 2020-01-22 05:30 | NUR ---
Spoke with patients son Rodolfo who is POA. Verified password and Albert SHELL gave him CT results. He then was updated on option to emergently transfer patient to stroke center or to make patient a DNR. Rodolfo stated that his mother would not want any life saving measures and made patient a full DNR. Verified with both Albert SHELL and myself. Primary RN Glory palacios.
--- NOTE | 2020-01-22 05:43 | NUR ---
PATIENT IS A FULL DNR PER SON LILLIANA
--- NOTE | 2020-01-22 05:50 | NUR ---
Maria catheter insertion Order obtained from Flores Bowden NP. Maria catheter 16 guage [place] inserted with clean sterile technique. Patient tolerated well.
--- NOTE | 2020-01-22 06:08 | NUR ---
DNR signed by Nikki Bowden NP and filed in pts chart
[2020-01-22] MEDS: SODIUM CHLOR 0.9% PF (SALINE LOCK) 10ML VIAL/SYR IV SCH ×3 (06:54→22:00)
[2020-01-22] MEDS: SUCRALFATE 1 GM/10 ML ORAL SUSP GT SCH ×3 (06:54→16:23)
[2020-01-22 07:02] LABS: Eosinophils # (auto) 0 10 ^3/uL (0-0.8); Hemoglobin 8.4 g/dL (12.2-16.2); Lymphocytes # (auto) 0.3 10 ^3/uL (0.4-5.4); Nucleated Red Blood Cells % 0.1 %
[2020-01-22 07:05] LABS: Basophils # (auto) 0 10 ^3/uL (0-0.2); Basophils % (auto) 0.3 % (0.0-2.0); Eosinophils % (auto) 0.2 % (0.0-7.0); Hematocrit 26.4 % (36.0-46.0); Lymphocytes % (auto) 2.5 % (10.0-50.0); Mean Corpuscular Hemoglobin 25.6 pg (28.0-32.0); Mean Corpuscular Hgb Conc. 31.7 g/dL (32.0-36.0); Mean Corpuscular Volume 80.7 fL (80.0-100.0); Monocytes % (auto) 7.3 % (0.0-12.0); Neutrophils # (auto) 11.9 10 ^3/uL (1.6-8.6); Neutrophils % (auto) 89.7 % (37.0-80.0); Platelet Count (auto) 290 10^3/uL (140-450); Red Blood Cells 3.27 10^6/uL (4.0-5.20); Red Cell Distribution Width 17.3 % (11.8-14.3); White Blood Cell 13.3 10^3/uL (4.4-10.8)
--- NOTE | 2020-01-22 07:40 | NUR ---
Closing shift note Pt lying in bed. Respirations even and unlabored. Care endorsed to Cierra GUTHRIE
--- NOTE | 2020-01-22 07:45 | NUR ---
Opening Shift Note: Assumed care of patient. Patient asleep at this time. No S/S of distress/SOB or pain. Respirations even and unlabored. Bed in lowest locked position, side rails up x 2, call light within reach. Will continue to monitor for changes Q1hr and PRN.
[2020-01-22 08:01] LABS: Albumin 2.8 g/dL (3.4-5.0); BUN/Creatinine Ratio 10.6; Calcium 8.8 mg/dL (8.5-10.1); Magnesium 1.9 mg/dL (1.6-2.6); Potassium 3.4 mmol/L (3.5-5.1)
[2020-01-22 08:03] LABS: Bilirubin, Total 0.4 mg/dL (0.2-1.0); Total Protein 6.4 g/dL (6.4-8.2)
[2020-01-22 08:07] LABS: INR 1.08 (0.9-1.15); Partial Thromboplastin Time 28.1 sec (23.0-31.2)
[2020-01-22 09:00] VITALS: BP 133/63
--- NOTE | 2020-01-22 09:40 | NUR ---
CALLED DR. VALDEZ CALLED REGARDING NEW CONSULT. UPDATED ON PATIENT STATUS.
[2020-01-22] MEDS: FOLIC ACID 1 MG TAB PO SCH (10:00)
[2020-01-22] MEDS: METOPROLOL TARTRATE 25 MG TAB PO SCH ×2 (10:00→22:00)
[2020-01-22] MEDS: ENOXAPARIN SOD 40 MG/0.4 ML SYRINGE SC SCH (10:00)
[2020-01-22] MEDS: PANTOPRAZOLE 40 MG TAB PO SCH ×2 (10:00→22:00)
[2020-01-22 10:05] LABS: Phosphorus 2.1 mg/dL (2.5-4.90)
[2020-01-22] MEDS: cefTRIAXone 1GM/50ML D5W 50 ML IV SCH (10:22)
[2020-01-22 13:00] VITALS: BP 144/73
--- NOTE | 2020-01-22 13:39 | NUR ---
DR. LEON AT BEDSIDE. DISCUSSED POC AND PROGNOSIS WITH PATIENTS FAMILY AT BEDSIDE.
--- NOTE | 2020-01-22 14:06 | NUR ---
PER MD REQUEST PATIENT INFORMATION SENT TO [facility].
[2020-01-22] MEDS: SODIUM FERR GLUC 62.5MG/5ML 125 MG in SODIUM CHL 0.9% 100 ML IV SCH (14:09)
--- NOTE | 2020-01-22 14:25 | NUR ---
Nutrition Followup Note Wt 60.0 kg Pt was sleeping with no family by bedside. per records pt s/p stroke last night. pt continues to be on CLD with no Po for today recorded pt now on hospice per RN Est energy needs BW 56 [id number] kcal (25-30 kcal/kg BW), Est protein needs: 56-67 g (1.0-1.2 g/kg BW). Will reassess prn. Labs: GLU 168 H ALB 2.8 L BM: Pt had 2 BM today per RN note Skin: BS 14 mod risk, full details in daycare director note PES: Altered nutrition related lab values r.t current chronic medical condition aeb elev RFT hypocalcemia, mild hypoalb Comments Will continue to monitor PO intake, skin status, pertinent labs and weight trends. Will f/u in 2-3 days Rec: 1) continue current plan of care
--- NOTE | 2020-01-22 14:36 | NUR ---
RETOUCHER PHOTOENGRAVING AT BEDSIDE.
[2020-01-22 15:00] LABS: Albumin 2.6 g/dL (3.4-5.0)
[2020-01-22 15:04] LABS: Bilirubin, Total 0.4 mg/dL (0.2-1.0); Total Protein 5.2 g/dL (6.4-8.2)
--- NOTE | 2020-01-22 15:47 | NUR ---
PATIENT TEMP AT THIS TIME IS 100.4. COOLING MEASURES APPLIED. DR. LEON MADE AWARE.
[2020-01-22 16:59] VITALS: BP 120/86
--- NOTE | 2020-01-22 18:45 | NUR ---
CLOSING NOTE: PATIENT RESTING IN BED, A/O X 0, PATIENT REACTIVE ONLY TO PAIN. NO S/S OF DISTRESS AT THIS TIME.
[2020-01-23] MEDS: SODIUM CHLOR 0.9% PF (SALINE LOCK) 10ML VIAL/SYR IV SCH (05:57)
[2020-01-23] MEDS: SUCRALFATE 1 GM/10 ML ORAL SUSP GT SCH ×2 (05:57→11:30)
[2020-01-23 06:00] VITALS: BP 125/55
--- NOTE | 2020-01-23 06:00 | NUR ---
Pt's HR increased from 60s-80s of earlier this shift to 146 and continued to climb to 160s. Pt's resps cont even and WNL. Pt stiffens when touched. This RN prepared morphine and zofran to give for possible pain. Pt wincing with flushing of saline lock. Site puffy. Unable to give meds. JERRI Cadena attempted to start saline lock with 22g cath. First attempt unsuccessful, "blew". Second attempt successful when pt suddenly moved dislodging IV cath. Both catheters removed and pressure dressings applied. Report to day RN. Pt's HR has decreased to 90s to 120s.
--- NOTE | 2020-01-23 07:30 | NUR ---
Opening Shift Note Assumed care of patient, resting comfortably. No S/S of distress/SOB or pain on 2 LPM via nasal cannula. Instructed on POC and to call for assist PRN, will continue to monitor for changes Q1hr and PRN. Bed in low and locked position, rails up x2, no-slip socks on. Repositioned for comfort.
--- NOTE | 2020-01-23 08:00 | NUR ---
CALL FROM DR LEON UPDATED ON NO IV ACCESS, OK FOR NO IV AT THIS TIME, DISCHARGE ORDER IN PLACE, AWAITING TRANSPORTATION, SCHEDULED FOR 11AM PER KIERAN WITH [facility].
[2020-01-23 08:29] VITALS: BP 153/69
[2020-01-23 09:00] VITALS: BP 153/69
[2020-01-23] MEDS: cefTRIAXone 1GM/50ML D5W 50 ML IV SCH (09:00)
[2020-01-23] MEDS: PANTOPRAZOLE 40 MG TAB PO SCH (10:00)
[2020-01-23] MEDS: METOPROLOL TARTRATE 25 MG TAB PO SCH (10:00)
[2020-01-23] MEDS: FOLIC ACID 1 MG TAB PO SCH (10:00)
--- NOTE | 2020-01-23 10:05 | NUR ---
DR LEON AT BEDSIDE
[2020-01-23] MEDS: SODIUM FERR GLUC 62.5MG/5ML 125 MG in SODIUM CHL 0.9% 100 ML IV SCH (12:00)
--- NOTE | 2020-01-23 12:05 | NUR ---
DISCHARGED Discharge instructions given as ordered. Encourage to follow up with PMD as instructed. All questions and concerns addressed. Patient verbalized understanding. Medication reconciliation form completed and copy given to patient. IV removed with catheter intact, pressure dressing applied, sumner catheter remained for hospice. Telemetry unit returned to ICU. Patient taken to transportation vehicle via gurney with all personal belongings. No distress noted at time of departure. Attempt to call family however, no answer.
--- NOTE | 2020-01-24 12:13 | NUR ---
forensic identification specialist 01/22/2020 Per consult hospic eval for CVA. Hospice set up by Dr Aldana and bedside nurse. Patient went on service with [facility] hospice. Addendum: 01/24/20 at 1214 by Supriya Jarrett Amended: Links added.
== END 2020-01-23 12:05 | disposition hospice, home (50) | DRG 521 ==
LOC: ER 10:31 → EDBD 10:31 → TELE 10:32 → TELE-WESTW 16:30
PROVIDERS: ADMIT Nurse Practitioner Acute Care; ATTEND Internal Medicine
PROC: 0SRS019 Replacement of Left Hip Joint, Femoral Surface with Metal Synthetic Substitute, Cemented, Open Approach (ICD-10-PCS; principal; 2020-01-17 14:00)
DX: S72.012A Unspecified intracapsular fracture of left femur, initial encounter for closed fracture (principal); I60.9 Nontraumatic subarachnoid hemorrhage, unspecified; R64 Cachexia; D68.59 Other primary thrombophilia; R73.9 Hyperglycemia, unspecified; I48.0 Paroxysmal atrial fibrillation; K27.9 Peptic ulcer, site unspecified, unspecified as acute or chronic, without hemorrhage or perforation; M19.90 Unspecified osteoarthritis, unspecified site; M81.0 Age-related osteoporosis without current pathological fracture; D72.829 Elevated white blood cell count, unspecified; E53.8 Deficiency of other specified B group vitamins; D50.9 Iron deficiency anemia, unspecified; F41.9 Anxiety disorder, unspecified; I11.0 Hypertensive heart disease with heart failure; I50.9 Heart failure, unspecified; I70.0 Atherosclerosis of aorta; K44.9 Diaphragmatic hernia without obstruction or gangrene; M16.10 Unilateral primary osteoarthritis, unspecified hip; M43.12 Spondylolisthesis, cervical region; M48.02 Spinal stenosis, cervical region; W18.39XA Other fall on same level, initial encounter; Z96.651 Presence of right artificial knee joint; Z66 Do not resuscitate; H35.60 Retinal hemorrhage, unspecified eye; Z88.8 Allergy status to other drugs, medicaments and biological substances; Z82.61 Family history of arthritis; Y93.89 Activity, other specified; Z68.22 Body mass index [BMI] 22.0-22.9, adult; Y92.89 Other specified places as the place of occurrence of the external cause; Y99.8 Other external cause status; Z79.01 Long term (current) use of anticoagulants; Z86.14 Personal history of Methicillin resistant Staphylococcus aureus infection; Z87.11 Personal history of peptic ulcer disease; Z90.49 Acquired absence of other specified parts of digestive tract; Z90.710 Acquired absence of both cervix and uterus; Z98.42 Cataract extraction status, left eye
CPT/HCPCS: 36415; 70450; 71045; 71250; 72125; 72170; 72192; 80048; 80053; 80061; 81001; 82270; 82550; 82607; 82728; 82746; 82962; 83036; 83540; 83550; 83615; 83735; 83874; 84100; 84443; 84484; 85014; 85018; 85025; 85045; 85610; 85730; 86850; 86900; 86901; 87040; 87081; 87086; 87088; 87186; 93005; 93306; 93886; 95819; 97163; C1776; C9113; G0378; J0690; J0696; J0885; J1100; J1756; J1885; J2250; J2405; J2543; J2704; J3490; J7060